=== PATIENT | male | born 1940 | race Caucasian/White ===

== ENCOUNTER → 2017-06-07 | Outpatient (CLI) | payer MEDICARE, OTHER ==
[2016-07-31 05:03] VITALS: BP 174/86
[~2017-06-07] MED LIST: AMLO10TA2 PO; ASPI325T8 PO; Amoxicillin/Potassium Clav PO; BYSTOLIC20 MG PO; CLOP75TA57 PO; CONTRAST GIVEN MC PRN; FAMO40TA57 PO; GOSE10.8 SQ; HYDR12.53 PO; IOHEXOL 240 MG/ML 50ML VIAL. PO ONE; IOHEXOL 300 MG/ML 75 ML VIAL IV ONE; LEVE500T56 PO; LOVA20TA2 PO; LOVA40TA2 PO; OXYC1TAB7 PO; PHEN100C PO; PHEN100C4 PO; POTASSIUM CHLO10 MEQ PO; SULF1TAB24 PO; TAMS0.4C97 PO
--- NOTE | 2017-06-07 10:01 | RAD ---
CT of the chest, abdomen and pelvis with contrast, 06/07/2017: History: Prostate cancer Multidetector CT imaging was performed following oral and IV administration of contrast. There are mild emphysematous changes in the lungs. A calcified granuloma is present in the lingula. There are a few scattered linear parenchymal scars. No pulmonary mass or significant infiltrate is seen. There is no evidence of pleural fluid. There is moderate calcific plaquing of the thoracic aorta and its branches without evidence of aneurysm. There are moderate scattered coronary artery calcifications. There are calcified mediastinal and hilar nodes due to old granulomatous disease. No mediastinal or hilar adenopathy is seen. A trace amount of pericardial fluid is evident. The gallbladder is surgically absent. No hepatic abnormality is detected. The pancreas is unremarkable. The spleen is of normal size. There is minimal renal cortical scarring. The kidneys show no evidence of obstruction or mass. The adrenal glands are unremarkable. There is extensive aortic calcific plaquing. 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 This was also evident on the previous study from 02/11/2016. No abdominal or pelvic adenopathy is seen. There is unchanged prostatic enlargement. The seminal vesicles are unremarkable. The bladder demonstrates mild chronic diffuse mural thickening A few scattered colonic diverticula are identified. No paracolonic inflammatory process is seen. There is no evidence of bowel obstruction. No free fluid or free air is evident in the abdomen or pelvis. Scattered degenerative changes are present in the spine. No definite blastic bony lesions are seen. IMPRESSION: 1. Miscellaneous chronic findings as described above. 2. No CT evidence of metastatic disease in the chest, abdomen or pelvis. PQRS Compliance Statement: One or more of the following individualized dose reduction techniques were utilized for this examination: 1. Automated exposure control 2. Adjustment of the mA and/or kV according to patient size 3. Use of iterative reconstruction technique
--- NOTE | 2017-06-07 12:54 | RAD ---
Radionuclide bone scan, 06/07/2017: History: Prostate cancer, persistent fatigue The body imaging was performed following IV injection of 25 mCi of technetium 99m MDP. Comparison is made to a study from 09/14/2015. There is mildly increased activity at both knees and shoulders compatible with arthritis. Activity of the radionuclide about the skeleton and major joints is symmetric. Normal activity is present in both kidneys and the bladder. IMPRESSION: No bone scan evidence of osseous metastatic disease.
== END | disposition home or self-care (01) ==
LOC: NM 07:31
PROVIDERS: ATTEND Internal Medicine Hematology & Oncology
DX: C61 Malignant neoplasm of prostate (principal); R53.83 Other fatigue
CPT/HCPCS: 71260; 74177; 78306; 96374; A9503; Q9966; Q9967

== ENCOUNTER 2019-04-25 14:35 | Emergency (ER) | payer MEDICARE, OTHER ==
[~2019-04-25] VITALS: Ht 182.9 cm; Wt 59.0 kg
[~2019-04-25 14:35] MED LIST changes: -AMLO10TA2 PO; +AMLO10TA8 PO; +CLOP75TA PO; -CONTRAST GIVEN MC PRN; -HYDR12.53 PO; +HYDR12.575 PO; -IOHEXOL 240 MG/ML 50ML VIAL. PO ONE; -IOHEXOL 300 MG/ML 75 ML VIAL IV ONE; +POTA10TA12 PO; -POTASSIUM CHLO10 MEQ PO
--- NOTE | 2019-04-25 15:03 | PHYS DOC ---
Past Medical History Past Medical History: High Cholesterol, Hypertension, Seizure, Other Additional Past Medical Histor: chronic abd pain, high chol Past Surgical History: Other Additional Past Surgical Histo: unknown abdominal surg, carotid endart Alcohol Use: None Drug Use: None Adult General Chief Complaint Chief Complaint: MALE UROGENITAL PROBLEMS HPI HPI Patient is a 79 year old male with history of rest take cancer who presents with acute urinary retention. Patient states he last urinated 12 hours prior to ED arrival. Reports suprapubic abdominal pain and fullness. Denies fever chills nausea vomiting or sweats. Denies recent urinary tract infection or antibiotic use. No new medications. No other acute symptoms or complaints. Patient states he was last seen by his urologist go after being cleared following radiation treatment of his prostate. [] Review of Systems Review of Systems View symptoms as per history of present illness. All other review symptoms are negative. All other systems were reviewed and found to be within normal limits, except as documented in this note. Current Medications Current Medications Current Medications Medications (Trade) Dose Ordered Sig/Minerva Start Time Stop Time Status Last Admin Dose Admin Ceftriaxone Sodium (Rocephin) 1 gm 1X ONCE 04/25/19 17:45 04/25/19 17:46 UNV Dextrose (Dextrose 50%-Water Syringe) 25 gm 1X ONCE 04/25/19 15:45 04/25/19 16:04 DC Dextrose/Sodium Chloride 1,000 ml @ 125 mls/hr 1X ONCE 04/25/19 15:45 04/25/19 16:04 DC Sodium Chloride 1,000 ml @ 1,000 mls/hr 1X ONCE 04/25/19 17:00 04/25/19 17:59 Allergies Allergies Allergies Coded Allergies Type Severity Reaction Last Updated Verified No Known Drug Allergies 02/18/16 No Physical Exam Physical Exam Constitutional: Well developed, cachectic. [] HENT: Normocephalic, atraumatic, bilateral external ears normal, oropharynx moist, no oral exudates, nose normal. [] Eyes: PERRLA, EOMI, conjunctiva normal, no discharge. [] Neck: Normal range of motion, no tenderness, supple, no stridor. [] Cardiovascular:Heart rate regular rhythm, no murmur [] Lungs & Thorax: Bilateral breath sounds clear to auscultation and mildly diminished.[] Abdomen: Bowel sounds normal, soft, large non incarcerated lower abdominal hernia. [] Skin: Warm, dry, no erythema, no rash. [] Back: No tenderness. [] Extremities: No tenderness. [] Neurologic: Alert and oriented X 3, normal motor function, normal sensory function, no focal deficits noted. [] Psychologic: Affect normal, judgement normal, mood normal. [] Current Patient Data Vital Signs Vital Signs Date Time Temp Pulse Resp B/P (MAP) Pulse Ox O2 Delivery O2 Flow Rate FiO2 04/25/19 14:56 97.7 89 20 136/71 (92) 96 97.7 Lab Values Laboratory Tests Test 04/25/19 15:55 04/25/19 16:56 Urine Color Yellow Urine Clarity Clear Urine pH 7.0 Urine Specific [place] 1.015 Urine Protein 30 mg/dL (NEG-TRACE) Urine Glucose (UA) Negative mg/dL (NEG) Urine Ketones (Stick) Negative mg/dL (NEG) Urine Blood Moderate (NEG) Urine Nitrite Negative (NEG) Urine Bilirubin Negative (NEG) Urine Urobilinogen Dipstick 1.0 mg/dL (0.2 mg/dL) Urine Leukocyte Esterase Large (NEG) Urine RBC 3-5 /HPF (0-2) Urine WBC Tntc /HPF (0-4) Urine Squamous Epithelial Cells Occ /LPF Urine Bacteria Few /HPF (0-FEW) Urine Mucus Slight /LPF White Blood Count 13.0 x10^3/uL (4.0-11.0) H Red Blood Count 4.04 x10^6/uL (4.30-5.70) L Hemoglobin 12.1 g/dL (13.0-17.5) L Hematocrit 35.7 % (39.0-53.0) L Mean Corpuscular Volume 88 fL (79-100) Mean Corpuscular Hemoglobin 30 pg (25-35) Mean Corpuscular Hemoglobin Concent 34 g/dL (31-37) Red Cell Distribution Width 15.1 % (11.5-14.5) H Platelet Count 296 x10^3/uL (140-400) Neutrophils (%) (Auto) 89 % (31-73) H Lymphocytes (%) (Auto) 6 % (24-48) L Monocytes (%) (Auto) 5 % (0-9) Eosinophils (%) (Auto) 0 % (0-3) Basophils (%) (Auto) 1 % (0-3) Neutrophils # (Auto) 11.5 x10^3uL (1.8-7.7) H Lymphocytes # (Auto) 0.7 x10^3/uL (1.0-4.8) L Monocytes # (Auto) 0.6 x10^3/uL (0.0-1.1) Eosinophils # (Auto) 0.0 x10^3/uL (0.0-0.7) Basophils # (Auto) 0.1 x10^3/uL (0.0-0.2) Platelet Estimate Pending Sodium Level 131 mmol/L (136-145) L Potassium Level 3.5 mmol/L (3.5-5.1) Chloride Level 94 mmol/L (98-107) L Carbon Dioxide Level 26 mmol/L (21-32) Anion Gap 11 (6-14) Blood Urea Nitrogen 16 mg/dL (8-26) Creatinine 0.9 mg/dL (0.7-1.3) Estimated GFR (Cockcroft-Gault) 81.0 BUN/Creatinine Ratio 18 (6-20) Glucose Level 102 mg/dL (70-99) H Calcium Level 8.6 mg/dL (8.5-10.1) Total Bilirubin 0.5 mg/dL (0.2-1.0) Aspartate Amino Transferase (AST) 34 U/L (15-37) Alanine Aminotransferase (ALT) 51 U/L (16-63) Alkaline Phosphatase 86 U/L (46-116) Total Protein 7.0 g/dL (6.4-8.2) Albumin 2.4 g/dL (3.4-5.0) L Albumin/Globulin Ratio 0.5 (1.0-1.7) L Laboratory Tests 04/25/19 16:56 Laboratory Tests 04/25/19 16:56 EKG EKG [] Radiology/Procedures Radiology/Procedures [] Course & Med Decision Making Course & Med Decision Making Pertinent Labs and Imaging studies reviewed. (See chart for details) [Abdomen soft, nonsurgical, denies abdominal pain. Follow Here place. No urinary obstruction. IV fluids antibiotics given for treatment of urinary tract infection. Catheter removed. Patient instructed to increase fluids and follow-up with PCP. Return precautions reviewed. Patient verbalizes understanding and agreement discharge instructions prior to departure] Brandee Disclaimer Brandee Disclaimer This electronic medical record was generated, in whole or in part, using a voice recognition dictation system. Departure Departure Impression: Primary Impression: UTI (urinary tract infection) Additional Impression: Hyponatremia Disposition: HOME, SELF-CARE Condition: GOOD Referrals: LUIS JIMENEZ MD (PCP) Patient Instructions: Urinary Tract Infection Additional Instructions: Please increase fluids and complete full course of antibiotics. Follow-up with your PCP early next week for urine culture results. Return to the ED if new or worsening symptoms. Scripts Cephalexin (KEFLEX) 500 Mg Capsule 1 CAP PO TID, #21 CAP Prov: BORIS EATON DO 04/25/19 Problem Qualifiers BORIS EATON DO Apr 25, 2019 15:03
[2019-04-25] MEDS ORDERED: DEXTROSE 50% 25 GM / 50ML DISP.SYRIN. IV ONE (15:45)
[2019-04-25] MEDS ORDERED: IV DEXTROSE 5 %-0.45 % NACL 1,000 ML IV ONE (15:45)
[2019-04-25] MEDS ORDERED: IV NORMAL SALINE 1000ML BAG 1,000 ML IV ONE (17:00)
--- NOTE | 2019-04-25 17:04 | NUR ---
Per Mable GUZMÁN request/joaquina guzman given decaff coffee.
[2019-04-25 17:09] LABS: BASO # 0.1 x10^3/uL (0.0-0.2); BASO % 1 % (0-3); EOS % 0 % (0-3); HEMATOCRIT 35.7 % (39.0-53.0); HEMOGLOBIN 12.1 g/dL (13.0-17.5); LYMPH # 0.7 x10^3/uL (1.0-4.8); LYMPH % 6 % (24-48); MEAN CORPUSCULAR HEMOGLOBIN 30 pg (25-35); MEAN CORPUSCULAR HGB CONC 34 g/dL (31-37); MEAN CORPUSCULAR VOLUME 88 fL (79-100); MONO # 0.6 x10^3/uL (0.0-1.1); MONO % 5 % (0-9); NEUT # 11.5 x10^3uL (1.8-7.7); NEUT % 89 % (31-73); PLATELET COUNT 296 x10^3/uL (140-400); RED BLOOD COUNT 4.04 x10^6/uL (4.30-5.70); RED CELL DISTRIBUTION WIDTH 15.1 % (11.5-14.5)
[2019-04-25 17:20] LABS: CALCIUM 8.6 mg/dL (8.5-10.1); CREATININE 0.9 mg/dL (0.7-1.3); POTASSIUM 3.5 mmol/L (3.5-5.1)
[2019-04-25 17:20] LABS: BILIRUBIN,URINE NEGATIVE (NEG); CLARITY,URINE CLEAR; COLOR,URINE YELLOW; NITRITE,URINE NEGATIVE (NEG); PROTEIN,URINE 30 mg/dL (NEG-TRACE)
[2019-04-25 17:27] LABS: ALBUMIN 2.4 g/dL (3.4-5.0); ALBUMIN/GLOBULIN RATIO 0.5 (1.0-1.7); TOTAL BILIRUBIN 0.5 mg/dL (0.2-1.0)
[2019-04-25 17:33] LABS: BACTERIA,URINE FEW /HPF (0-FEW); SQUAMOUS EPITHELIAL CELL,UR OCC /LPF; WBC,URINE TNTC /HPF (0-4)
[2019-04-25] MEDS ORDERED: cefTRIAXone IV Push 1 GM VIAL. IVP ONE (17:45)
[2019-04-25] MEDS ORDERED: CEPH-264 PO (17:49)
[2019-04-25 18:11] LABS: % LYMPHS 6 % (24-48); % MONOS 1 % (0-10); % SEGS 93 % (35-66); ANISOCYTOSIS SLIGHT; PLT ESTIMATE ADEQUATE (ADEQUATE); POLYCHROMASIA SLIGHT
[2019-04-25 18:49] VITALS: BP 145/78
== END 2019-04-25 19:28 | disposition home or self-care (01) ==
LOC: ER 14:35
DX: N39.0 Urinary tract infection, site not specified (principal); E87.1 Hypo-osmolality and hyponatremia; E78.00 Pure hypercholesterolemia, unspecified; I10 Essential (primary) hypertension; G89.29 Other chronic pain
CPT/HCPCS: 36415; 51702; 80053; 81001; 85007; 85025; 87086; 96374; 99284; J0696; J7030

== ENCOUNTER → 2019-07-23 | Outpatient (CLI) | payer MEDICARE, OTHER ==
[~2019-07-23] MED LIST changes: +CEPH-264 PO; +CONTRAST GIVEN. MC PRN; +IOHEXOL 240 MG/ML 50ML VIAL. PO ONE; +IOHEXOL 300 MG/ML 100ML VIAL. IV ONE
--- NOTE | 2019-07-23 14:06 | RAD ---
Examination: CT CHEST ABD PELVIS W/CONTRAST History: Weight loss, prostate cancer Comparison/Correlation: 06/07/2017 CT chest abdomen pelvis with contrast Findings: Axial images of the chest, abdomen, and pelvis obtained following IV and oral contrast. Sagittal and coronal reformatted images were provided. Left costophrenic sulcus consolidation is present. Opacification of the lower lobe bronchi bilaterally is evident in greater on the left. No enlarged thoracic lymph nodes. Diffuse emphysematous involvement of the lung hogan noted. Left basilar calcified granuloma is present. Minimal right medial costophrenic sulcus atelectasis. Extensive atheromatous calcific involvement of the thoracic aorta, coronary arteries, and branch vessels of the aortic arch noted. Cholecystectomy noted. Liver, spleen, pancreas, and adrenal glands are unremarkable. Kidneys are unremarkable. Marked calcific involvement of the origins of the celiac artery and main renal artery is noted. The superior mesenteric artery at its proximal aspect is diminutive in diameter. Opacification of the superior mesenteric artery is more distally. Aortic bypass graft is noted with limbs that extend to the common femoral arteries bilaterally. Thrombosis of the right graft limb is noted with no significant contrast opacification. There may be minimal contrast opacification proximally. Suture material is present involving the distal gastric body and pylorus region as well as proximal duodenum. No bowel obstruction. Appendix appears the visualized and unremarkable. There is gaseous distention of a left flank region bowel loop is notable with associated suture material. This is presumably postoperative. Contrast is noted more distally in nondistended small bowel. Urinary bladder is mostly decompressed with circumferential wall thickening noted. No pelvic free fluid. Prostate gland is borderline enlarged. Severe L5-S1 disc space narrowing is present with mild stenosis of the spinal canal.. There are no suspicious bony lesions identified to suggest metastatic involvement. Impression: Left basilar costophrenic sulcus consolidation. Opacification of lower lobe bronchi greater on the left . Findings presumably represent aspiration. 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 Lack of opacification with contrast compatible with occlusion on this nonarteriographic exam. No findings of metastases noted. No enlarged lymph nodes. Mild prostatomegaly. Circumferential wall thickening of the urinary bladder which may represent partial outlet obstruction. Distended left mid abdominal small bowel loop presumably related to postoperative status. No bowel obstruction identified with contrast noted more distally. PQRS Compliance Statement: One or more of the following individualized dose reduction techniques were utilized for this examination: 1. Automated exposure control 2. Adjustment of the mA and/or kV according to patient size 3. Use of iterative reconstruction technique Electronically signed by: Jean Marie Stallings MD (07/23/2019 2:03 PM) [facility]
--- NOTE | 2019-07-23 14:09 | RAD ---
Examination: BONE SCAN WHOLE BODY History: Prostate cancer Comparison/Correlation: 06/07/2017 whole body bone scan Findings: 25 mCi technetium 99m MDP was intravenously administered for purposes of total body bone scintigraphy. Uptake of radiotracer is unremarkable with no abnormal attenuation to suggest metastatic disease. Kidneys and urinary bladder are visualized. Minimal uptake involving the knees likely represents degenerative change. Impression: No abnormal examination of radiotracer to suggest metastases. Electronically signed by: Jean Marie Stallings MD (07/23/2019 2:06 PM) [facility]
== END | disposition home or self-care (01) ==
LOC: NM 07:05
PROVIDERS: ATTEND Internal Medicine Hematology & Oncology
DX: C61 Malignant neoplasm of prostate (principal); R63.4 Abnormal weight loss; D64.9 Anemia, unspecified
CPT/HCPCS: 71260; 74177; 78306; A9503; Q9966; Q9967